=== PATIENT | female | born 1995 | race Caucasian/White ===

== ENCOUNTER 2016-08-24 22:47 | Emergency (ER) | payer BC ==
[~2016-08-24] VITALS: Ht 167.6 cm; Wt 54.8 kg
[2016-08-24 22:49] VITALS: TEMP 36.9; Ht 167.6 cm; Wt 54.8 kg
[2016-08-24] MEDS ORDERED: FEXO1TAB49 PO (23:02)
[2016-08-24] MEDS ORDERED: BCPILLS PO (23:02)
[2016-08-24] MEDS ORDERED: SPIR25TA PO (23:02)
[2016-08-24] MEDS ORDERED: PHENAZOPYRIDINE HOME PACK 200 MG VIAL PO ONE (23:15)
[2016-08-24] MEDS ORDERED: MACROBID 100MG HOME PACK 1 EA VIAL PO ONE (23:15)
[2016-08-24] MEDS ORDERED: NITR-5 PO (23:17)
[2016-08-24] MEDS ORDERED: PHEN-876 PO (23:17)
--- NOTE | 2016-08-24 23:17 | EMERGENCY ROOM VISIT NOTE ---
History First contact with patient: 22:53 Chief Complaint: URINARY SYMPTOMS Stated Complaint: UTI SYMPTOMS,PAINFUL URINATION,INCREASED FREQUENCY Nursing Triage Summary: pt reports UTI symptoms that began this AM. states she is also having vaginal spotting, due for period in one week. also states she has low abd pain. History of Present Illness The patient is a 21 year old female who presents to the Emergency Room with complaints of urinary symptoms. The patient states that since this morning, she has had burning with urination and increased frequency of urination. She states that she has some pressure in her lower abdomen. The patient does not have a history of UTIs. She does state that she has had some vaginal spotting for the past 2 days. She takes control pills and reports that she is due for her. In 1 week. She states there has been only a small amount of spotting , but this is unusual for her. The patient denies any fevers or back pain. Review of Systems A complete 10-point Review of Systems was discussed with the patient, with pertinent positives and negatives listed in the History of Present Illness. All remaining Review of Systems questions can be considered negative unless otherwise specified. Social History Smoking Status: Current Every Day Smoker Current/Historical Medications Scheduled Control Pills ( Control Pills), 1 TAB PO DAILY Fexofenadine Hcl (Ivanna Allergy), 1 TAB PO DAILY Nitrofurantoin Monohyd Macrocr (Macrobid), 100 MG PO BID Phenazopyridine HCl (Pyridium), 200 MG PO TID Spironolactone (Aldactone), 25 MG PO TID Allergies Coded Allergies: No Known Allergies (Unverified , 08/24/16) Physical Exam Vital Signs Date Time Temp Pulse Resp B/P Pulse Ox O2 Delivery O2 Flow Rate FiO2 08/24/16 22:49 36.9 84 18 126/85 98 Room Air Physical Exam VITALS: Vitals are noted on the nurse's note and reviewed by myself. Vital signs stable. GENERAL: This is a 21-year-old female, in no acute distress, nondiaphoretic, well-developed well-nourished. SKIN: Capillary reflex less than 2 seconds. HEART: Regular rate and rhythm without murmurs gallops or rubs. LUNGS: Clear to auscultation bilaterally without wheezes, rales or rhonchi. ABDOMEN: Soft, mild tenderness of the suprapubic region. NEURO: Patient was alert and oriented to person place and time. Medical Decision & Procedures Laboratory Results Test 08/24/16 23:04 Urine Test NEG (NEG) Medical Decision Differential diagnosis includes urinary tract infection, vaginal infection, pyelonephritis, urethritis, among others. The patient was evaluated as above. Exam is unremarkable. Urine dipstick did show nitrites, leukocytes and blood. Urine was sent for culture. Urine was negative. The patient will be placed on Macrobid and Pyridium. She verbalized understanding and was discharged home in good condition. Impression Primary Impression: Urinary tract infection Departure Information Dispostion Home / Self-Care Condition GOOD Prescriptions Phenazopyridine HCl (Pyridium) 200 Mg Tab 200 MG PO TID for 2 Days, #6 TAB Prov: Vannessa Lester PA-C 08/24/16 Nitrofurantoin Monohyd Macrocr (Macrobid) 100 Mg Cap 100 MG PO BID for 4 Days, #8 CAP Prov: Vannessa Lester PA-C 08/24/16 Referrals No Doctor, Assigned (PCP) Patient Instructions My [facility] Additional Instructions You have been treated in the Emergency Department for a Urinary Tract Infection (UTI). You have been prescribed Macrobid to be taken twice daily for a total of 5 days. This is an antibiotic. All antibiotics have the potential to cause diarrhea. Stop this medication and contact a medical provider if you were to develop any significant adverse side effects including: wheezing, shortness of breath, passing out, vomiting, or a diffuse rash. Always take antibiotics as directed and COMPLETE the ENTIRE course regardless of the improvement of your symptoms. You have been prescribed Pyridium to be taken as prescribed. This medicine will help with the urinary symptoms that you have been experiencing. Be aware that Pyridium may turn your urine a red-orange or brown color. This effect is harmless. Drink plenty of water and stay well hydrated. As with any trip to the Emergency Department, you should follow-up with your Primary Care Provider from today's visit. Return to the emergency department if your symptoms persist despite treatment plan outlined above or if the following symptoms occur: increased fevers, chills , low back pain, nausea/vomiting, or blood in your urine. Problem Qualifiers Primary Impression: Urinary tract infection Urinary tract infection type: site unspecified Hematuria presence: with hematuria Qualified Codes: N39.0 - Urinary tract infection, site not specified ; R31.9 - Hematuria, unspecified
[2016-08-24 23:28] VITALS: BP 136/70; PULSE 74; O2SAT 98
--- NOTE | 2016-08-27 14:38 | Pharmacy Progress Note ---
ED Pharmacist Culture FollowUp Date of Service: Aug 27, 2016. Patient was sent home with a prescription for nitrofurantoin, which should cover the E. coli growing from the patient's urine culture.
== END 2016-08-24 23:28 | disposition home or self-care (01) ==
LOC: C.EDB 22:48 → C.EDC 23:28
DX: N39.0 Urinary tract infection, site not specified (principal); R31.9 Hematuria, unspecified; F17.210 Nicotine dependence, cigarettes, uncomplicated; Z79.3 Long term (current) use of hormonal contraceptives; Z79.899 Other long term (current) drug therapy